=== PATIENT | male | born 1930 | race Two or more races ===

== ENCOUNTER 2020-11-15 12:29 | Emergency (ER) | payer OTHER ==
[~2020-11-15] VITALS: Ht 160 cm; Wt 66.2 kg
[~2020-11-15 12:29] MED LIST: HUMALOG MIX 75/23 ML
[2020-11-15] MEDS ORDERED: LANTUS SOL100 UNIT/1 (12:54)
[2020-11-15] MEDS ORDERED: SYNTHROID112 MCG (12:55)
== END 2020-11-15 16:03 | disposition home or self-care (01) ==
LOC: ER 12:29
DX: R05 Cough (principal)